=== PATIENT | female | born 1960 | race Caucasian/White ===

== ENCOUNTER 2017-02-09 17:55 | Observation (INO) ==
[2017-02-09] MEDS ORDERED: ASPIRIN PO STA (18:11)
[2017-02-09 18:39] LABS: MANUAL DIFF NEEDED? NO
[2017-02-09 18:44] LABS: BASO% 0.3 % (0.0-0.8); EOS# 0.06 X1000 (0.0-0.7); EOS% 0.9 % (0.0-10.0); HEMATOCRIT 42.4 % (37.0-47.0); HEMOGLOBIN 14.4 g/dL (12.0-16.0); IMM GRAN# 0.01 X1000 (0.0-0.04); IMM GRAN% 0.2 % (0.0-0.5); LYMPH# 1.33 X1000 (1.2-3.4); MCH 31.4 PG (27-31); MCV 92.6 FL (81-99); MONO# 0.51 X1000 (0.11-0.59); MONO% 7.7 % (1.7-9.3); MPV 11.3 FL (7.4-10.4); NEUT% 70.9 % (42.2-75.2); PLT 192 X1000 (130-400); RBC 4.58 XMIL (4.2-5.4)
[2017-02-09 18:59] LABS: AGAP 8; ALBUMIN 4.8 g/dL (3.5-5.0); ALKALINE PHOSPHATASE 97 U/L (32-104); BUN 16 mg/dL (8-22); CALCIUM 9.8 mg/dL (8.8-10.2); CHLORIDE 102 mmol/L (98-107); CK PROFILE 75 U/L (24-173); COSMO 271; GOT 19 U/L (10-30); GPT 13 U/L (10-36); MAGNESIUM 1.8 mg/dL (1.5-2.7); POTASSIUM 4.3 mmol/L (3.5-5.1); SODIUM 135 mmol/L (136-145); TCO2 25 mmol/L (25-35); TOTAL PROTEIN 8.2 g/dL (6.3-8.3)
[2017-02-09] MEDS ORDERED: PREDNISONE PO ONE (20:06)
[2017-02-09] MEDS ORDERED: NITROGLYCERIN TOP ONE (21:20)
[2017-02-09] MEDS ORDERED: TYLENOL PO PRN (21:23)
[2017-02-09] MEDS ORDERED: ZOFRAN IV PRN (21:23)
[2017-02-09] MEDS ORDERED: NITROGLYCERIN SL PRN (21:27)
[2017-02-09] MEDS: NS 1,000 ML IV PRN (21:31)
[2017-02-10 14:05] VITALS: BP 121/65
[2017-02-10] MEDS ORDERED: ROCEPHIN 1 GM in NS 50 ML IV SCH (14:30)
[2017-02-10] MEDS: FERROUS SULFATE PO SCH (15:27)
[2017-02-10] MEDS: VIT C PO SCH (15:27)
[2017-02-10] MEDS: [UNRECOGNIZED DRUG - OTHER] PO SCH (15:27)
[2017-02-10] MEDS: NS 1,000 ML IV PRN (19:51)
[2017-02-11 06:03] LABS: MANUAL DIFF NEEDED? NO
[2017-02-11 06:09] LABS: BASO% 0.5 % (0.0-0.8); EOS# 0.05 X1000 (0.0-0.7); EOS% 1.3 % (0.0-10.0); HEMOGLOBIN 12.9 g/dL (12.0-16.0); LYMPH# 1.35 X1000 (1.2-3.4); LYMPH% 34.8 % (20.5-51.1); MCHC 33.1 g/dL (33-37); MCV 93.8 FL (81-99); MONO# 0.36 X1000 (0.11-0.59); MONO% 9.3 % (1.7-9.3); MPV 11.6 FL (7.4-10.4); NEUT% 54.1 % (42.2-75.2); PLT 161 X1000 (130-400); RBC 4.16 XMIL (4.2-5.4)
[2017-02-11 06:37] LABS: AGAP 8; BUN 14 mg/dL (8-22); CALCIUM 8.9 mg/dL (8.8-10.2); CHLORIDE 108 mmol/L (98-107); COSMO 281; POTASSIUM 3.7 mmol/L (3.5-5.1); SODIUM 141 mmol/L (136-145); TCO2 25 mmol/L (25-35)
[2017-02-11] MEDS: NS 1,000 ML IV PRN (08:31)
[2017-02-11] MEDS: VIT C PO SCH (08:31)
[2017-02-11] MEDS: FERROUS SULFATE PO SCH (08:31)
[2017-02-11] MEDS: [UNRECOGNIZED DRUG - OTHER] PO SCH (08:31)
== END 2017-02-11 13:25 | disposition home or self-care (01) ==
LOC: P.ED 17:55 → P.MEDSURG 17:55
PROVIDERS: ATTEND Internal Medicine